=== PATIENT | male | born 1950 | race African-American/Black ===

== ENCOUNTER 2021-04-17 10:01 | Inpatient (IN) | payer OTHER, MEDICAID ==
[~2021-04-17] VITALS: Ht 177.8 cm; Wt 69.1 kg
[2021-04-17 11:00] LABS: Urine Bacteria FEW /hpf (None Seen); Urine Blood Negative /uL (Negative); Urine Budding Yeast FEW /hpf (None Seen); Urine Mucus FEW (None Seen); Urine WBC 74 /hpf (0 - 3)
[2021-04-17 11:12] LABS: Basophils # (auto) 0.1 10 ^3/uL (0-0.2); Basophils % (auto) 1.5 % (0.0-2.0); Eosinophils # (auto) 0.1 10 ^3/uL (0-0.8); Eosinophils % (auto) 1.3 % (0.0-7.0); Hemoglobin 16.4 g/dL (13.5-17.5); Lymphocytes # (auto) 1.4 10 ^3/uL (0.4-5.4); Lymphocytes % (auto) 35.9 % (10.0-50.0); Mean Corpuscular Hemoglobin 30.6 pg (28.0-32.0); Mean Corpuscular Hgb Conc. 32.9 g/dL (32.0-36.0); Mean Corpuscular Volume 93.1 fL (80.0-100.0); Monocytes # (auto) 0.7 10 ^3/uL (0-1.3); Monocytes % (auto) 17.4 % (0.0-12.0); Neutrophils # (auto) 1.7 10 ^3/uL (1.6-8.6); Neutrophils % (auto) 43.9 % (37.0-80.0); Nucleated Red Blood Cells % 0.2 %; Red Blood Cells 5.37 10^6/uL (4.5-5.90); Red Cell Distribution Width 14.1 % (11.8-14.3)
[2021-04-17] MEDS ORDERED: MORPHINE SULFATE 4 MG/ML SYR/VIAL IV ONE (11:15)
[2021-04-17] MEDS ORDERED: ONDANSETRON HCL 4 MG/2 ML VIAL IV ONE (11:15)
[2021-04-17 11:27] LABS: Albumin 3.5 g/dL (3.4-5.0); Calcium 9.2 mg/dL (8.5-10.1); Potassium 3.5 mmol/L (3.5-5.1)
[2021-04-17 11:30] LABS: BUN/Creatinine Ratio 11.6; Bilirubin, Total 0.5 mg/dL (0.2-1.0); Total Protein 8.8 g/dL (6.4-8.2)
[2021-04-17 11:42] LABS: Amylase 37 U/L (25-115); Lipase 61 U/L (73-393)
[2021-04-17] MEDS ORDERED: cefTRIAXone 1GM/50ML D5W 50 ML IV ONE (12:15)
[2021-04-17] MEDS ORDERED: ACETAMINOPHEN 325 MG TAB PO ONE (16:00)
[2021-04-18] MEDS ORDERED: MORPHINE SULFATE INJECTION 2 MG/ML SYRG IV PRN (04:00)
[2021-04-18] MEDS ORDERED: ONDANSETRON HCL 4 MG/2 ML VIAL IV PRN (04:00)
[2021-04-18] MEDS ORDERED: ACETAMINOPHEN 325 MG TAB PO PRN (04:00)
[2021-04-18] MEDS ORDERED: TEMAZEPAM 15 MG CAP PO PRN (04:00)
[2021-04-18] MEDS ORDERED: ALBUTEROL SULF 2.5 MG/0.5ML(0.5%) NEB SOLN NEB PRN (04:00)
[2021-04-18] MEDS ORDERED: PHENAZOPYRIDINE HCL 100 MG TAB PO ONE (04:00)
[2021-04-18] MEDS ORDERED: dilTIAZem 25 MG/5 ML VIAL IV ONE (04:00)
[2021-04-18] MEDS ORDERED: cloNIDine HCL 0.1 MG TAB PO PRN (04:00)
[2021-04-18] MEDS ORDERED: NITROGLYCERIN 0.4 MG SL TAB SL PRN (04:00)
[2021-04-18] MEDS ORDERED: LIDOCAINE 2% JELLY 11ml (GLYDO) UR ONE (08:00)
[2021-04-18 10:00] VITALS: BP 134/75
[2021-04-18] MEDS ORDERED: PANTOPRAZOLE 40 MG TAB PO SCH (10:00)
[2021-04-18] MEDS: cefTRIAXone 1GM/50ML D5W 50 ML IV SCH (10:47)
[2021-04-18] MEDS: ZINC SULFATE 220mg CAP or TAB PO SCH (10:54)
[2021-04-18] MEDS: ENOXAPARIN SOD 40 MG/0.4 ML SYRINGE SC SCH (10:55)
[2021-04-18] MEDS: CARVEDILOL 3.125 MG TAB PO SCH ×2 (10:55→21:00)
[2021-04-18] MEDS: ASCORBIC ACID 500 MG TAB PO SCH ×2 (10:55→21:01)
[2021-04-18 13:00] VITALS: BP 134/75
[2021-04-18] MEDS: HYDROcodone-ACET 5/325MG TAB PO PRN ×2 (16:53→21:07)
[2021-04-18 17:00] VITALS: BP 124/83
[2021-04-18 20:00] VITALS: BP 151/101
[2021-04-18] MEDS: PHENAZOPYRIDINE HCL 100 MG TAB PO SCH (21:01)
[2021-04-18] MEDS: ATORVASTATIN 20 MG TAB PO SCH (21:01)
[2021-04-18 22:00] VITALS: BP 151/101
[2021-04-19 05:00] VITALS: BP 134/61
[2021-04-19 06:47] LABS: Hematocrit 45.4 % (41.0-53.0); Hemoglobin 14.9 g/dL (13.5-17.5); Mean Corpuscular Hemoglobin 30.5 pg (28.0-32.0); Mean Corpuscular Hgb Conc. 32.9 g/dL (32.0-36.0); Mean Corpuscular Volume 92.7 fL (80.0-100.0); Red Cell Distribution Width 14.2 % (11.8-14.3); White Blood Cell 4.3 10^3/uL (4.4-10.8)
[2021-04-19 06:59] LABS: Potassium 4.4 mmol/L (3.5-5.1)
[2021-04-19 07:29] LABS: Basophils % (manual) 0 (0.0-2.0); Blast Cells 0; Metamyelocytes % 0; Myelocytes % 0; Promyelocytes % 0; Reactive Lymphocytes 0
[2021-04-19 08:11] LABS: Band Neutrophils % (manual) 4; Eosinophils % (manual) 2 (0-7); Lymphocytes % (manual) 59 (10.0-50.0); Monocytes % (manual) 10 (0-12)
[2021-04-19] MEDS: cefTRIAXone 1GM/50ML D5W 50 ML IV SCH (08:48)
[2021-04-19 09:00] VITALS: BP 104/62
[2021-04-19] MEDS ORDERED: guaiFENesin 200 MG/10 ML UD GT PRN (10:00)
[2021-04-19] MEDS: ZINC SULFATE 220mg CAP or TAB PO SCH (10:04)
[2021-04-19] MEDS: ENOXAPARIN SOD 40 MG/0.4 ML SYRINGE SC SCH (10:04)
[2021-04-19] MEDS: ASCORBIC ACID 500 MG TAB PO SCH ×2 (10:04→22:03)
[2021-04-19] MEDS: NICOTINE 21MG/24 HR TOPICAL PATCH TD SCH (10:04)
[2021-04-19] MEDS: PHENAZOPYRIDINE HCL 100 MG TAB PO SCH ×2 (10:04→22:03)
[2021-04-19] MEDS: CARVEDILOL 3.125 MG TAB PO SCH ×2 (10:05→22:03)
[2021-04-19 13:00] VITALS: BP 113/70
[2021-04-19] MEDS: HYDROcodone-ACET 5/325MG TAB PO PRN (16:55)
[2021-04-19 17:00] VITALS: BP 147/80
[2021-04-19 22:00] VITALS: BP 159/84
[2021-04-19] MEDS: ATORVASTATIN 20 MG TAB PO SCH (22:03)
[2021-04-20 05:30] VITALS: BP 116/71
[2021-04-20] MEDS: ZINC SULFATE 220mg CAP or TAB PO SCH (08:46)
[2021-04-20] MEDS: ENOXAPARIN SOD 40 MG/0.4 ML SYRINGE SC SCH (08:46)
[2021-04-20] MEDS: cefTRIAXone 1GM/50ML D5W 50 ML IV SCH (08:46)
[2021-04-20] MEDS: PHENAZOPYRIDINE HCL 100 MG TAB PO SCH (08:46)
[2021-04-20] MEDS: CARVEDILOL 3.125 MG TAB PO SCH ×2 (08:47→22:02)
[2021-04-20] MEDS: NICOTINE 21MG/24 HR TOPICAL PATCH TD SCH (08:47)
[2021-04-20] MEDS: ASCORBIC ACID 500 MG TAB PO SCH ×2 (08:47→22:02)
[2021-04-20] MEDS ORDERED: TAM04C PO (09:50)
[2021-04-20] MEDS ORDERED: ATOR20TA PO (09:50)
[2021-04-20] MEDS ORDERED: HYDR-4833 PO ×2 (09:50→12:32)
[2021-04-20] MEDS ORDERED: CARV12.544 PO ×2 (09:50→12:32)
[2021-04-20] MEDS ORDERED: HYDR-4072 PO (09:53)
[2021-04-20] MEDS ORDERED: ASPI-543 PO (09:53)
[2021-04-20] MEDS ORDERED: PROM1SOL4 PO (09:53)
[2021-04-20] MEDS ORDERED: CHOL20007 PO (09:53)
[2021-04-20] MEDS: HYDROcodone-ACET 5/325MG TAB PO PRN (11:31)
[2021-04-20 16:00] VITALS: BP 114/65
[2021-04-20 22:00] VITALS: BP 122/66
[2021-04-20] MEDS: ATORVASTATIN 20 MG TAB PO SCH (22:02)
[2021-04-21 08:00] VITALS: BP 121/75
[2021-04-21 09:00] VITALS: BP 121/75
[2021-04-21] MEDS: HYDROcodone-ACET 5/325MG TAB PO PRN (10:01)
[2021-04-21] MEDS: cefTRIAXone 1GM/50ML D5W 50 ML IV SCH (10:01)
[2021-04-21] MEDS: ZINC SULFATE 220mg CAP or TAB PO SCH (10:01)
[2021-04-21] MEDS: CARVEDILOL 3.125 MG TAB PO SCH (10:02)
[2021-04-21] MEDS: ASCORBIC ACID 500 MG TAB PO SCH (10:02)
[2021-04-21] MEDS: ENOXAPARIN SOD 40 MG/0.4 ML SYRINGE SC SCH (10:02)
[2021-04-21] MEDS: NICOTINE 21MG/24 HR TOPICAL PATCH TD SCH (10:03)
[2021-04-21 13:00] VITALS: BP 108/62
[2021-04-21] MEDS ORDERED: CIPR500T4 PO ×2 (15:14→15:19)
[2021-04-21 16:40] VITALS: BP 108/62
[2021-04-21 17:00] VITALS: BP 127/75
== END 2021-04-21 17:04 | disposition home or self-care (01) | DRG 690 ==
LOC: ER 10:01 → OVERFLOW 04-18 03:53 → WEST WING 04-18 08:51
PROVIDERS: ADMIT Nurse Practitioner; ATTEND Internal Medicine
DX: N10 Acute pyelonephritis (principal); J44.9 Chronic obstructive pulmonary disease, unspecified; I11.0 Hypertensive heart disease with heart failure; I50.9 Heart failure, unspecified; I25.10 Atherosclerotic heart disease of native coronary artery without angina pectoris; E78.00 Pure hypercholesterolemia, unspecified; F15.90 Other stimulant use, unspecified, uncomplicated; F17.210 Nicotine dependence, cigarettes, uncomplicated; Z95.1 Presence of aortocoronary bypass graft; Z88.0 Allergy status to penicillin; Z88.8 Allergy status to other drugs, medicaments and biological substances; Z20.822 Contact with and (suspected) exposure to COVID-19; N40.1 Benign prostatic hyperplasia with lower urinary tract symptoms
CPT/HCPCS: 36415; 51702; 74176; 80048; 80053; 81001; 82150; 83690; 84484; 85007; 85025; 85027; 87040; 87086; 87426; 93005; 96365; 96375; 97163; G0378; J0696; J2405

== ENCOUNTER 2021-09-30 18:24 | Emergency (ER) | payer OTHER, MEDICAID ==
[~2021-09-30] VITALS: Ht 175.3 cm; Wt 65.8 kg
[~2021-09-30 18:24] MED LIST: ASPI-543 PO; ATOR20TA PO; CARV12.544 PO; CHOL20007 PO; CIPR500T4 PO; HYDR-4072 PO; HYDR-4833 PO; PROM1SOL4 PO; TAM04C PO
[2021-09-30] MEDS ORDERED: KETOROLAC TROMETH 60MG/2ML VIAL IM ONE (19:45)
[2021-09-30 21:38] LABS: Urine Bacteria NONE SEEN /hpf (None Seen); Urine Blood TRACE /uL (Negative); Urine Hyaline Cast FEW /lpf (0 - 2); Urine Mucus FEW (None Seen); Urine Specific Gravity 1.029 (1.001-1.035); Urine WBC 3 /hpf (0 - 3)
[2021-09-30] MEDS ORDERED: NAP500T PO (22:06)
[2021-09-30 22:21] VITALS: BP 117/73
[2021-09-30 22:44] LABS: Hematocrit 41.2 % (41.0-53.0); Hemoglobin 14.4 g/dL (13.5-17.5); Mean Corpuscular Hemoglobin 31.7 pg (28.0-32.0); Mean Corpuscular Volume 90.7 fL (80.0-100.0); Red Blood Cells 4.54 10^6/uL (4.5-5.90); Red Cell Distribution Width 13.3 % (11.8-14.3); White Blood Cell 6.7 10^3/uL (4.4-10.8)
[2021-09-30 22:45] LABS: Albumin 2.9 g/dL (3.4-5.0); Anion Gap 7 (5-15); BUN/Creatinine Ratio 16.7; Blood Urea Nitrogen 18 mg/dL (7-18); Calcium 9.1 mg/dL (8.5-10.1); Carbon Dioxide 26 mmol/L (21-32); Chloride 102 mmol/L (98-107); GFR African American 87 mL/min; GFR Non-African American 72 mL/min; Glucose 59 mg/dL (74-106); Potassium 3.9 mmol/L (3.5-5.1); Sodium 135 mmol/L (136-145)
[2021-09-30 22:47] LABS: Alanine Aminotransferase 24 U/L (16-61); Alkaline Phosphatase 85 U/L (45-117); Aspartate Aminotransferase 29 U/L (15-37); Bilirubin, Total 0.5 mg/dL (0.2-1.0); Total Protein 8.4 g/dL (6.4-8.2)
[2021-09-30 22:49] LABS: Band Neutrophils % (manual) 0; Basophils % (manual) 0 (0.0-2.0); Blast Cells 0; Eosinophils % (manual) 0 (0-7); Metamyelocytes % 0; Myelocytes % 0; Promyelocytes % 0; Reactive Lymphocytes 0
[2021-09-30 23:16] LABS: Lymphocytes % (manual) 40 (10.0-50.0); Monocytes % (manual) 25 (0-12)
== END 2021-09-30 22:24 | disposition home or self-care (01) ==
LOC: ER 18:24
DX: M25.50 Pain in unspecified joint (principal); I11.0 Hypertensive heart disease with heart failure; I50.9 Heart failure, unspecified; E03.9 Hypothyroidism, unspecified; E78.5 Hyperlipidemia, unspecified; J44.9 Chronic obstructive pulmonary disease, unspecified; F17.210 Nicotine dependence, cigarettes, uncomplicated; Z79.82 Long term (current) use of aspirin; Z79.899 Other long term (current) drug therapy; Z88.0 Allergy status to penicillin; Z88.8 Allergy status to other drugs, medicaments and biological substances
CPT/HCPCS: 36415; 80053; 81001; 85007; 85027; 96372; 99283; J1885

== ENCOUNTER 2021-12-06 16:03 | Emergency (ER) | payer OTHER, MEDICAID ==
[~2021-12-06] VITALS: Ht 177.8 cm; Wt 66.0 kg
[~2021-12-06 16:03] MED LIST changes: +NAP500T PO
[2021-12-06 20:34] VITALS: BP 140/61
[2021-12-06] MEDS ORDERED: AZIT250T8 PO (22:13)
[2021-12-06] MEDS ORDERED: KETOROLAC TROMETH 30 MG/ML 1ML VIAL IM ONE (23:00)
== END 2021-12-06 23:07 | disposition home or self-care (01) ==
LOC: ER 16:03
DX: K40.90 Unilateral inguinal hernia, without obstruction or gangrene, not specified as recurrent (principal); J98.8 Other specified respiratory disorders; F17.210 Nicotine dependence, cigarettes, uncomplicated; F12.10 Cannabis abuse, uncomplicated; F15.10 Other stimulant abuse, uncomplicated; I11.0 Hypertensive heart disease with heart failure; I50.9 Heart failure, unspecified; E78.5 Hyperlipidemia, unspecified; Z95.1 Presence of aortocoronary bypass graft; Z20.822 Contact with and (suspected) exposure to COVID-19; Z88.0 Allergy status to penicillin; Z88.6 Allergy status to analgesic agent
CPT/HCPCS: 36415; 71046; 76870; 87426; 96372; 99285; J1885

== ENCOUNTER 2022-07-05 12:07 | Emergency (ER) | payer BC, MEDICAID ==
[~2022-07-05] VITALS: Ht 182.9 cm; Wt 77.0 kg
[~2022-07-05 12:07] MED LIST changes: +AZIT250T8 PO
[2022-07-05 14:23] LABS: Albumin 4.1 g/dL (3.4-5.0); Calcium 9.9 mg/dL (8.5-10.1); Potassium 4.1 mmol/L (3.5-5.1)
[2022-07-05 14:25] LABS: INR 1.14 (0.9-1.15); Partial Thromboplastin Time 34.6 sec (24.6-33.4)
[2022-07-05 14:27] LABS: Hematocrit 49.5 % (41.0-53.0); Mean Corpuscular Hemoglobin 31.6 pg (28.0-32.0); Mean Corpuscular Hgb Conc. 34.4 g/dL (32.0-36.0); Mean Corpuscular Volume 91.8 fL (80.0-100.0); Red Blood Cells 5.39 10^6/uL (4.5-5.90); Red Cell Distribution Width 14.9 % (11.8-14.3)
[2022-07-05 14:29] LABS: BUN/Creatinine Ratio 17.6; Bilirubin, Total 0.8 mg/dL (0.2-1.0); Total Protein 8.8 g/dL (6.4-8.2)
[2022-07-05 15:11] LABS: Band Neutrophils % (manual) 0; Basophils % (manual) 0 (0.0-2.0); Blast Cells 0; Eosinophils % (manual) 0 (0-7); Metamyelocytes % 0; Myelocytes % 0; Promyelocytes % 0; Reactive Lymphocytes 0
[2022-07-05] MEDS ORDERED: IOHEXOL 300 MG/ML 100ML BOTTLE IJ ONE (15:42)
[2022-07-05 15:52] LABS: Lymphocytes % (manual) 32 (10.0-50.0); Monocytes % (manual) 17 (0-12)
[2022-07-05] MEDS ORDERED: TRAM-297 PO (17:36)
[2022-07-05 17:39] VITALS: BP 143/90
== END 2022-07-05 17:43 | disposition home or self-care (01) ==
LOC: EDBD 12:07 → ER 12:07 → EDUNIT# 12:07 → ER 17:43
DX: K40.90 Unilateral inguinal hernia, without obstruction or gangrene, not specified as recurrent (principal); I11.0 Hypertensive heart disease with heart failure; I50.9 Heart failure, unspecified; E03.9 Hypothyroidism, unspecified; J44.9 Chronic obstructive pulmonary disease, unspecified; E78.5 Hyperlipidemia, unspecified; F17.210 Nicotine dependence, cigarettes, uncomplicated; Z95.1 Presence of aortocoronary bypass graft; Z79.82 Long term (current) use of aspirin; Z79.2 Long term (current) use of antibiotics; Z79.899 Other long term (current) drug therapy; Z88.0 Allergy status to penicillin; Z88.8 Allergy status to other drugs, medicaments and biological substances
CPT/HCPCS: 36415; 74177; 80053; 85007; 85027; 85610; 85730; 99285; Q9967

== ENCOUNTER 2022-09-14 19:24 | Emergency (ER) | payer OTHER, MEDICAID ==
[~2022-09-14] VITALS: Ht 177.8 cm; Wt 63.6 kg
[~2022-09-14 19:24] MED LIST changes: +TRAM-297 PO
[2022-09-14 19:25] VITALS: BP 156/93
[2022-09-14 20:09] LABS: Hemoglobin 14.4 g/dL (13.5-17.5); Mean Corpuscular Hemoglobin 30.3 pg (28.0-32.0); Mean Corpuscular Hgb Conc. 33.4 g/dL (32.0-36.0); Mean Corpuscular Volume 90.6 fL (80.0-100.0); Red Blood Cells 4.74 10^6/uL (4.5-5.90); Red Cell Distribution Width 13.3 % (11.8-14.3); White Blood Cell 5.7 10^3/uL (4.4-10.8)
[2022-09-14 20:13] LABS: Band Neutrophils % (manual) 0; Basophils % (manual) 0 (0.0-2.0); Blast Cells 0; Eosinophils % (manual) 0 (0-7); Metamyelocytes % 0; Myelocytes % 0; Promyelocytes % 0; Reactive Lymphocytes 0
[2022-09-14] MEDS ORDERED: HYDROcodone-ACET 10/325MG TAB PO ONE (20:15)
[2022-09-14 20:34] LABS: Albumin 3.6 g/dL (3.4-5.0); Calcium 9.8 mg/dL (8.5-10.1); Potassium 4.3 mmol/L (3.5-5.1)
[2022-09-14 20:39] LABS: BUN/Creatinine Ratio 16.3 (10.0-20.0); Bilirubin, Total 0.4 mg/dL (0.2-1.0); Total Protein 7.8 g/dL (6.4-8.2)
[2022-09-14 21:38] LABS: Lymphocytes % (manual) 29 (10.0-50.0); Monocytes % (manual) 20 (0-12)
[2022-09-14] MEDS ORDERED: HYDR-4798 PO (23:16)
== END 2022-09-15 02:21 | disposition home or self-care (01) ==
LOC: EDBD 19:24 → ER 19:24
DX: J44.9 Chronic obstructive pulmonary disease, unspecified (principal); R10.2 Pelvic and perineal pain; M25.50 Pain in unspecified joint; E78.5 Hyperlipidemia, unspecified; I11.0 Hypertensive heart disease with heart failure; F17.210 Nicotine dependence, cigarettes, uncomplicated; I50.9 Heart failure, unspecified; F12.90 Cannabis use, unspecified, uncomplicated; F15.90 Other stimulant use, unspecified, uncomplicated; Z98.890 Other specified postprocedural states; Z88.0 Allergy status to penicillin; Z88.6 Allergy status to analgesic agent; Z79.899 Other long term (current) drug therapy
CPT/HCPCS: 36415; 74176; 80053; 83690; 85007; 85027; 93005